=== PATIENT | female | born 1955 ===

== ENCOUNTER → 2017-02-04 | Outpatient (CLI) | payer MEDICARE ==
[~2017-02-04] MED LIST: ACIDOPHILUS1 EAC3 PO; ADVIL200 MG PO; BIOTIN PO; CIPRO500 MG PO; COLACE100 MG PO; DESYREL150 MG PO; DILAUDID 2MG(HYD2 MG PO; EFFEXOR XR150 MG PO; FISH OIL 1,2001 EAC1 PO; HYZAAR 100-251 EACH PO; IRON325 M1 PO; KLONOPIN1 MG PO; LEVOTHROID (S137 MCG; LEVOTHROID (S137 MCG PO; LEVOTHROID (S150 MCG PO; LUNESTA1 MG PO; MELATONIN10 M3 PO; MILK OF MAGN400 ML PO; MIRALAX17 GM PO; MOBIC15 MG PO; NEURONTIN600 MG PO; NORCO 5-325 MG1 TAB PO; PERCOCET 10-321 EACH PO; PERCOCET 5-3251 EACH PO; THERAGRAN-M1 TAB PO; TYLENOL EXTRA500 MG PO; VALIUM5 MG PO; VITAMIN C500 M4 PO; XARELTO10 MG PO
[2017-02-04 09:15] LABS: ALBUMIN 3.4 gm/dL (3.5-5.0); ANION GAP 12.8 (10.0-19.0); CALCIUM 8.6 mg/dL (8.5-10.5); POTASSIUM 3.8 mMol/L (3.7-5.1)
[2017-02-04 09:22] LABS: CREATININE 0.8 mg/dL (0.5-1.1); TOTAL BILIRUBIN 0.5 mg/dL (0.0-1.5)
== END | disposition disaster alternative care site (69) ==
LOC: LNHI 08:52
PROVIDERS: Internal Medicine Interventional Cardiology
DX: I10 Essential (primary) hypertension (principal); R06.00 Dyspnea, unspecified; N18.3 Chronic kidney disease, stage 3 (moderate); E66.9 Obesity, unspecified